=== PATIENT | female | born 1960 | race Caucasian/White ===

== ENCOUNTER 2017-01-21 21:47 | Emergency (ER) | payer MEDICAID ==
[~2017-01-21] VITALS: Ht 152.4 cm; Wt 77.1 kg
[2017-01-22 01:22] VITALS: BP 138/85
== END 2017-01-22 01:10 | disposition home or self-care (01) ==
LOC: ED 21:47
DX: Z76.0 Encounter for issue of repeat prescription (principal); B34.9 Viral infection, unspecified; M81.0 Age-related osteoporosis without current pathological fracture; Z79.01 Long term (current) use of anticoagulants